=== PATIENT | female | born 1990 | race Caucasian/White ===

== ENCOUNTER 2022-07-19 22:57 | Emergency (ER) | payer MEDICARE, OTHER ==
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
[2022-07-20] MEDS ORDERED: LORazepam 1 MG TAB PO STA ×2 (00:55→05:28)
[2022-07-20] MEDS ORDERED: ONDANSETRON 4 MG TAB PO STA (00:55)
--- NOTE | 2022-07-20 05:28 | ED ---
Medical Decision Making - Medical Decision Making 32 female after conversation with psychiatry on reEval patient will be discharged as she has strong support and [facility] and [facility] will see her in AM Disposition Clinical Impression: Panic attack, Acute anxiety, Grief reaction Disposition: HOME SELF-CARE Condition: Fair Instructions (If sedation given, give patient instructions): Grief and Loss (ED) Is patient prescribed a controlled substance at d/c from ED?: No Referrals: Jozef Daniels DO [Primary Care Provider] - 1-2 days
[2022-07-20 10:40] VITALS: BP 128/78; PULSE 88; RESP 18; TEMP 98.1
== END 2022-07-20 10:38 | disposition home or self-care (01) ==
LOC: EC 22:57
DX: F41.0 Panic disorder [episodic paroxysmal anxiety] (principal); F43.20 Adjustment disorder, unspecified; F32.A Depression, unspecified; F90.9 Attention-deficit hyperactivity disorder, unspecified type; F17.200 Nicotine dependence, unspecified, uncomplicated
CPT/HCPCS: 99284

== ENCOUNTER → 2023-05-19 | Outpatient (CLI) | payer MEDICARE, OTHER ==
[2023-05-19 14:29] LABS: Partial Thromboplastin Time 23.1 sec (22.0-30.0); Prothrombin Time 10.2 sec (9.0-12.0)
[2023-05-19 21:03] LABS: ALT 44 U/L (8-44); AST 34 U/L (13-35); Albumin 4.3 d/dL (3.8-4.9); Albumin/Globulin Ratio 1.87 Ratio (1.60-3.17); Alkaline Phosphatase 84 U/L (41-126); BUN/Creat Ratio 9.12 Ratio (12.00-20.00); Blood Urea Nitrogen 7.3 mg/dL (9.0-27.0); Calcium 9.4 mg/dL (8.7-10.3); Carbon Dioxide 20.7 mmol/L (21.6-31.8); Chloride 107 mmol/L (96-109); Globulin 2.3 d/dL (1.6-3.3); Glucose 86 mg/dL (70-110); Potassium 4.6 mmol/L (3.5-5.5); Sodium 140 mmol/L (135-145); Total Bilirubin <0.2 mg/dL (0.3-1.2); Total Protein 6.6 d/dL (6.2-8.2)
[2023-05-20 01:33] LABS: Basophils # (A) 0.05 X 10*3/uL (0.00-0.10); Basophils % (A) 0.5 %; Eosinophils # (A) 0.36 X 10*3/uL (0.04-0.35); Eosinophils % (A) 3.9 %; HCT 41.2 % (37.2-46.3); HGB 12.9 d/dL (12.0-15.0); Lymphocytes # (A) 2.22 X 10*3/uL (0.90-5.00); Lymphocytes % (A) 23.9 %; MCH 28.5 pg (27.0-32.0); MCHC 31.3 d/dL (32.0-37.0); MCV 91.2 FL (80.0-97.0); Mean Platelet Volume 11.2 FL (9.5-12.2); Monocytes % (A) 4.3 %; NRBC Per 100 WBC 0 X 10*3/uL (0.00-0.01); Neutrophils # (A) 6.22 X 10*3/uL (1.80-7.70); Neutrophils % (A) 67.1 %; Platelet Count 340 X 10*3/uL (140-440); RBC 4.52 X 10*6/uL (4.10-5.20); WBC 9.28 X 10*3/uL (4.50-10.00)
== END | disposition home or self-care (01) ==
LOC: LABWHC1 13:19
PROVIDERS: ATTEND Family Medicine
DX: Z01.812 Encounter for preprocedural laboratory examination (principal)
CPT/HCPCS: 36415; 80053; 83036; 84443; 85025; 85610; 85730; 87086

== ENCOUNTER → 2023-05-22 | Outpatient (CLI) | payer MEDICARE, OTHER ==
--- NOTE | 2023-05-22 09:30 | XR ---
EXAMINATION TYPE: XR chest 2V DATE OF EXAM: 05/22/2023 COMPARISON: NONE TECHNIQUE: PA and lateral views submitted. HISTORY: Preop FINDINGS: The lungs are clear and there is no pneumothorax, pleural effusion, or focal pneumonia. Heart size normal and no overt failure. Osseous structures demonstrate hypertrophic and degenerative changes of the spine. Hyperinflation suggesting asthma or COPD. Probable tiny 1 to 2 mm left upper lobe granulom a. IMPRESSION: 1. No acute process.
== END | disposition home or self-care (01) ==
LOC: RADXRMAIN 09:02
PROVIDERS: ATTEND Orthopaedic Surgery Orthopaedic Surgery of the Spine
DX: Z01.818 Encounter for other preprocedural examination (principal)
CPT/HCPCS: 71046

== ENCOUNTER → 2023-05-22 | Outpatient (CLI) | payer MEDICARE, OTHER ==
[2023-05-22 15:38] LABS: ALT 38 U/L (8-44); AST 20 U/L (13-35); Albumin 4.5 d/dL (3.8-4.9); Albumin/Globulin Ratio 1.96 Ratio (1.60-3.17); Alkaline Phosphatase 97 U/L (41-126); BUN/Creat Ratio 10.38 Ratio (12.00-20.00); Blood Urea Nitrogen 8.3 mg/dL (9.0-27.0); Calcium 9.5 mg/dL (8.7-10.3); Carbon Dioxide 23.3 mmol/L (21.6-31.8); Chloride 104 mmol/L (96-109); Globulin 2.3 d/dL (1.6-3.3); Glucose 81 mg/dL (70-110); Potassium 3.9 mmol/L (3.5-5.5); Sodium 139 mmol/L (135-145); Total Bilirubin 0.8 mg/dL (0.3-1.2); Total Protein 6.8 d/dL (6.2-8.2)
== END | disposition home or self-care (01) ==
LOC: LABWHC1 08:28
PROVIDERS: ATTEND Orthopaedic Surgery Orthopaedic Surgery of the Spine
DX: Z01.812 Encounter for preprocedural laboratory examination (principal)
CPT/HCPCS: 36415; 80053; 86850; 86900; 86901

== ENCOUNTER 2023-05-25 06:00 | Day surgery (SDC) | payer MEDICARE, OTHER ==
[~2023-05-25 06:00] MED LIST: DEXAMETHASONE SOD PHOSPHATE 4 MG/ML 1 ML VIAL IV ONE; HYDROmorphone 0.5 MG/0.5 ML SYRINGE IVP PRN; LIDOCAINE 1% (10MG/ML) FOR IV START INTRADERMA PRN; ONDANSETRON 4 MG/2 ML VIAL IVP PRN; ceFAZolin 1,000 MG in SODIUM CHLORIDE 0.9% IRRIGATIO 1,000 ML IRRIGATION PRN; droPERidol 5 MG/2 ML VIAL IVP ONE
[2023-05-25] MEDS: LACTATED RINGERS 1,000 ML IV SCH (06:29)
[2023-05-25] MEDS ORDERED: MIDAZOLAM 2 MG/2 ML VIAL IVP ONE (07:03)
[2023-05-25] MEDS ORDERED: GELATIN SPONGE,ABSORB (LARGE) 1 EACH SPONGE TOPICAL ONE ×2 (07:28→08:30)
[2023-05-25] MEDS ORDERED: THROMBIN (BOVINE) 5,000 UNIT VIAL TOPICAL ONE ×2 (07:28→08:30)
[2023-05-25] MEDS ORDERED: MIDAZOLAM 2 MG/2 ML VIAL ONE (07:29)
[2023-05-25] MEDS ORDERED: NEOSTIGMINE 1 MG/ML 10 ML VIAL ONE (07:29)
[2023-05-25] MEDS ORDERED: PROPOFOL 10 MG/ML 20 ML VIAL IV ONE (07:29)
[2023-05-25] MEDS ORDERED: GLYCOPYRROLATE 0.2 MG/ML 2 ML VIAL ONE (07:29)
[2023-05-25] MEDS ORDERED: KETAMINE 10 MG/ML 20 ML VIAL ONE (07:29)
[2023-05-25] MEDS ORDERED: ROCURONIUM 10 MG/ML (5 ML VIAL) IV ONE (07:29)
[2023-05-25] MEDS ORDERED: fentaNYL (PF) 50 MCG/ML 2 ML AMP ONE (07:29)
[2023-05-25] MEDS ORDERED: PHENYLEPHRINE 10 MG/ML VIAL ONE (07:29)
[2023-05-25] MEDS ORDERED: BUPIVACAINE (PF) 0.5% 30 ML VIAL SQ ONE ×3 (07:29→08:00)
[2023-05-25] MEDS ORDERED: DEXAMETHASONE SOD PHOSPHATE 10 MG/ML 1 ML VIAL ONE (07:29)
[2023-05-25] MEDS ORDERED: SUCCINYLCHOLINE CHLORIDE 200 MG/10 ML VIAL IV ONE (07:29)
[2023-05-25] MEDS ORDERED: LIDOCAINE 2% INJ 20 MG/ML (2 ML VIAL) ONE (07:29)
[2023-05-25] MEDS ORDERED: LIDOCAINE 2%-EPI 1:100,000 20 ML VIAL SQ ONE ×3 (07:30→08:00)
[2023-05-25] MEDS ORDERED: ceFAZolin 1,000 MG in SODIUM CHLORIDE 0.9% 1,000 ML IRRIGATION ONE (08:04)
--- NOTE | 2023-05-25 08:55 | XR ---
EXAMINATION TYPE: XR cervical spine limited DATE OF EXAM: 05/25/2023 COMPARISON: NONE HISTORY: Needle placement TECHNIQUE: Single lateral view FINDINGS: There is a surgical instrument overlying C5-C6 disc space. There is an endotracheal tube. A dditional superficial overlying tubing noted. Remaining osseous structures. IMPRESSION: Intraoperative localization
[2023-05-25] MEDS ORDERED: LACTATED RINGERS 1,000 ML IV ONE (09:00)
[2023-05-25] MEDS ORDERED: ONDANSETRON 4 MG/2 ML VIAL IVP PRN (09:25)
[2023-05-25] MEDS ORDERED: HYDROmorphone 0.5 MG/0.5 ML SYRINGE IVP PRN (09:25)
[2023-05-25] MEDS ORDERED: HYDROmorphone 1 MG/ML 1 ML SYRINGE IVP PRN (09:25)
[2023-05-25] MEDS ORDERED: HYDROcodone/APAP 5-325MG 1 EACH TAB PO PRN (09:25)
[2023-05-25] MEDS ORDERED: ACETAMINOPHEN TAB 325 MG TAB PO PRN (09:25)
[2023-05-25] MEDS ORDERED: CYCLOBENZAPRINE 10 MG TAB PO PRN (09:25)
[2023-05-25] MEDS ORDERED: ACETAMINOPHEN TAB 500 MG TAB PO PRN (09:27)
--- NOTE | 2023-05-25 09:31 | P.OP ---
Date of Procedure: 05/25/23 Preoperative Diagnosis: Herniated nucleus pulposis C5 6 C6 7, cervical stenosis C5 6 C6 7, upper extremity radiculopathy, neck pain, degenerative disc disease Postoperative Diagnosis: Same Anesthesia: GETA Pathology: none sent Condition: stable Disposition: PACU Description of Procedure: BRIEF OPERATIVE NOTE Preoperative Diagnosis:Herniated nucleus pulposis C5 6 C6 7, cervical stenosis C5 6 C6 7, upper extremity radiculopathy, neck pain, degenerative disc disease Postoperative Diagnosis:Herniated nucleus pulposis C5 6 C6 7, cervical stenosis C5 6 C6 7, upper extremity radiculopathy, neck pain, degenerative disc disease Procedure: Anterior cervical decompression with discectomy and fusion C5 6 C6 7 Placement of interbody graft C5 6 C6 7 Application of anterior cervical plate C5 6 and 7 Surgeon: Dr. Hinds Gang Sawyer: Orville Galarza is present throughout the entire the case persistence during positioning, dissection, exposure, visualization, and all crucial elements of the case as well as closure. Anesthesia: General anesthesia per Dr. Collado Estimated blood loss: Approximately 100 mL Complications: None apparent Components implanted: K2M Du[place]in anterior cervical plate system with vikos interbody allograft bone graft Disposition: To recovery room in good stable condition. OPERATIVE INDICATIONS The patient has had long-standing issues in their neck and upper extremities. She's been having significant worsening at her neck and her upper extremities over the past several months. She is particularly having worsening at her left upper extremity. She was found have significant cervical changes with disc herniation with foraminal stenosis at C5 6 and C6 7 which quite well with her neck and upper extremity symptoms. The patient has been through conservative treatment. She is not having any prolonged benefit despite aggressive conservative treatment. We discussed various treatment options including surgery, and the patient wishes to proceed with surgery We discussed the risk, patient's alternatives and benefits of surgery including but not limited to, risk of bleeding risk of infection, risk of need for further surgery, risk of decreased, loss of motion, muscle function, malunion nonunion, hardware failure, nerve damage, paralysis, heart attack, and . OPERATIVE SUMMARY After discussing all the risks, patient alternatives and benefits at length, the patient elected to proceed with surgical intervention, signed informed consent, and presented for their procedure. The patient was seen and examined in the preoperative holding area and the surgical site was marked. The patient was given antibiotics and brought to the operating room. The patient was positioned on the operating room table in a supine position being careful to pad any bony prominences and pressure points. The patient was sedated and intubated by anesthesia in standard fashion. Once the airway and C- spine were stabilized the patient's arms were padded and tucked at her side, with her shoulders gently taped. The head was placed in a donut pad with the neck in good neutral alignment and position. We were careful to maintain the patient's cervical spine and good neutral alignment and position throughout. The patient was prepped and draped in a normal standard fashion. An appropriate timeout and keystone protocol performed. We were able to proceed with the surgery. The local wound area was infiltrated with local anesthetic. An incision was made transversely approximately 2-1/2 cm over the appropriate levels at C6. Dissection was taken down subcutaneously to the level of the platysma which was split in line with its fibers. Dissection was taken with a carotid approach, with the trachea and esophagus medial and the carotid sheath laterally. We dissected down to the anterior surface of the vertebral bodies. Intraoperative x-ray was taken which showed a marker at the appropriate level at C5 6 disc. With the appropriate level positively confirmed, we were able to proceed with discectomy at the appropriate levels. All of the operative levels were exposed appropriately. The patient had all their twitches back, and there was no evidence of recurrent laryngeal issue. The wound was copiously irrigated and suctioned dry as had been done periodically throughout the case. At the appropriate level/levels, starting at C5 6 and then removing the C6 7 I established an annulotomy with an 11 blade scalpel. A discectomy was performed with a combination of pituitary rongeurs, curettes, a high-speed bur, and Kerrison rongeurs. The posterior longitudinal ligament was taken down as were any posterior osteophytes. There had been significant disc herniation and evidence of stenosis which was remedied with decompression and discectomy. This gave good central and bilateral foraminal decompression. There is no evidence of any dural tear or leak. The endplates were prepared with a high-speed bur. With the endplates in good parallel position, I was able to size for the appropriate size interbody graft. The wound was irrigated and suctioned dry the graft was prepared and malleted into position. It had good alignment and position with the anterior surface flush with the anterior surface of the vertebral bodies. This was done similarly the appropriate levels first at C5 6 and then at C6 7. With the grafts intact, I was able to measure and contour and appropriate sized plate. The plate was positioned at the midline over the appropriate levels at C5 6 and 7. Screw holes were established with a hand drill and drill guide. Screws were placed in good alignment and position with excellent bony purchase. They were seated under the locking device. The construct was checked and found to be stable. Intraoperative x-ray was taken which showed good alignment and position of the implants at the appropriate levels. There was no evidence of any dural tear or leak. Good hemostasis was maintained. The wound was copiously irrigated and suctioned dry as had been done periodically throughout the case. The platysma was closed with absorbable suture. The subcutaneous tissue was closed. The subcuticular tissue was closed with absorbable suture. The wound was cleaned and dried and dressed appropriately. A soft cervical collar was placed appropriately. The patient was woken up by anesthesia, extubated, transferred back gently to their hospital bed and brought to the recovery room in good stable condition. The patient will be admitted to the hospital for appropriate postoperative care, medical management and monitoring. We will continue to follow them closely about the postoperative course.
--- NOTE | 2023-05-25 09:31 | XR ---
EXAMINATION TYPE: XR cervical spine 1V DATE OF EXAM: 05/25/2023 COMPARISON: NONE HISTORY: Hardware placement TECHNIQUE: Single crosstable lateral view FINDINGS: Only a portion of the surgical area of concern is included in field which appears in anatom ic alignment. Remaining osseous structures intact. ET tube noted. IMPRESSION: Limited intraoperative view.
[2023-05-25] MEDS ORDERED: diphenhydrAMINE 25 MG CAP PO PRN (15:00)
[2023-05-25] MEDS: SODIUM CHLORIDE 0.9% 1,000 ML IV SCH ×2 (16:15→20:37)
[2023-05-25] MEDS: BENZOCAINE/MENTHOL LOZENG 1 EACH LOZENGE MUCOUS MEM PRN ×2 (16:32→20:34)
[2023-05-25] MEDS: busPIRone HCl 10 MG TAB PO SCH (20:34)
[2023-05-26 01:37] VITALS: RESP 16
[2023-05-26] MEDS: LACTATED RINGERS 1,000 ML IV SCH (04:49)
[2023-05-26 07:47] VITALS: BP 137/81; PULSE 99; TEMP 98.4
[2023-05-26] MEDS: busPIRone HCl 10 MG TAB PO SCH (08:36)
--- NOTE | 2023-05-26 08:37 | P.DS ---
Providers Date of admission: 05/25/2023 Expected date of discharge: 05/26/23 Attending physician: Tristan Hinds Primary care physician: Jozef Daniels - Discharge Diagnosis(es) (1) Status post cervical spinal fusion Current Visit: Yes Status: Acute (2) Cervical stenosis of spinal canal Current Visit: Yes Status: Acute (3) Cervical disc herniation Current Visit: Yes Status: Acute (4) Radiculopathy affecting upper extremity Current Visit: Yes Status: Acute (5) Cervicalgia Current Visit: Yes Status: Acute (6) Degenerative cervical disc Current Visit: Yes Status: Acute Hospital Course: This is a pleasant 33-year-old female who presented with C5-6 and C6-7 herniated nucleus pulposus and cervical stenosis with cervicalgia, cervical degenerative disc disease, and upper extremity radiculopathy who failed outpatient conservative therapy. She was admitted for a C5-6 and C6-7 anterior cervical decompression and fusion. The patient tolerated the procedure well and did well postoperatively. She has some soreness at her throat but is eating breakfast this morning without difficulty. She is able to swallow without significant difficulty. She is not currently complaining of any upper extremity ra diculopathy or weakness. Her cervical pain is adequately controlled. She has been utilizing a soft cervical collar. Condition on day of discharge stable. Patient will be discharged home. Patient was cleared preoperatively for surgery by Dr. Daniels. Patient currently denies any nausea, vomiting, fever, or chills. Patient is eating and voiding freely without difficulty. Patient may shower Optifoam dressing intact. Patient may remove Optifoam dressing in 3 days and shower without a dressing at that time. Patient should refrain from driving until at least after their first follow-up appointment in the office. Patient should avoid excessive neck flexion, extension, rotation, and lateral sidebending; no overhead lifting; no lifting greater than 10 pounds. MAPS was previously reviewed. An "Opiod Start Talking" Form has been signed and placed in the patient's chart. A prescription has been written for hydrocodone 5 mg/325 mg, 1 tab every 6 hours is seen for acute pain, dispensed #28. Prescription was sent to the [facility] pharmacy located within [facility]. Physical Exam on day of discharge: Patient is awake, alert, and oriented 3 Vital signs stable Good chest excursion with deep inspiration and expiration Full range of motion of the cervical spine with adequate flexion, extension, and bilateral rotation Special Class Welder strength, thumb strength, interosseous strength, biceps strength, triceps strength, and shoulder strength positive sustained bilaterally Soft cervical collar intact Incision is clean, dry, and intact; no erythema, purulence, or signs of infection Optifoam dressing intact Procedures: C5-6 and C6-7 anterior cervical decompression and fusion Patient Condition at Discharge: Stable Plan - Discharge Summary Discharge Rx Participant: Yes New Discharge Prescriptions: New HYDROcodone/APAP 5-325MG [[place] 5-325] 1 tab PO Q6HR PRN 7 Days #28 tab PRN Reason: Pain No Action busPIRone HCL 10 mg PO BID Citalopram Hydrobromide [Citalopram HBr] 40 mg PO DAILY Acetaminophen/Diphenhydramine [Tylenol PM 500-25mg] 1 tab PO HS PRN PRN Reason: Insomnia Discharge Medication List Acetaminophen/Diphenhydramine [Tylenol PM 500-25mg] 1 tab PO HS PRN 05/20/23 [History] Citalopram Hydrobromide [Citalopram HBr] 40 mg PO DAILY 05/20/23 [History] busPIRone HCL 10 mg PO BID 05/20/23 [History] HYDROcodone/APAP 5-325MG [[place] 5-325] 1 tab PO Q6HR PRN 7 Days #28 tab 05/25/23 [Rx] Follow up Appointment(s)/Referral(s): Tristan Hinds DO [Doctor of Osteopathic Medicine] - 06/09/23 10:00 am Activity/Diet/Wound Care/Special Instructions: Keep site clean. May shower with waterproof Optifoam intact. Do not soak in a tub. After 72 hours postoperatively, patient may remove dressing and then may shower with area uncovered. Leave glue intact and allow it to fray off on its own. May ambulate as tolerated. Avoid heavy or rigorous activity. No repetitive bending twisting or lifting; no lifting greater than 10 pounds No overhead work. Take medications as prescribed. May wear soft cervical collar for comfort and support as needed. Discharge Disposition: HOME SELF-CARE
[2023-05-26] MEDS ORDERED: CITALOPRAM HYDROBROMIDE 20 MG TAB PO SCH (09:00)
== END 2023-05-26 09:03 | disposition home or self-care (01) ==
LOC: OR 06:00 → 5NMEDONC 09:26 → OR 05-26 09:03
PROVIDERS: ATTEND Orthopaedic Surgery Orthopaedic Surgery of the Spine
DX: M50.123 Cervical disc disorder at C6-C7 level with radiculopathy (principal); M48.02 Spinal stenosis, cervical region; Z79.899 Other long term (current) drug therapy
CPT/HCPCS: 81025; 86900; 86901; 86850; 72020; 72040; 22853 ×2; 20930; 22845; 22551; 22552; C1713 ×2; C1762 ×2; J2250; J0330; J1100; J2710; J0690 ×2; J2405; J3010; J2704; J1170; J2001; J2371